=== PATIENT | female | born 1955 | race Caucasian/White ===

== ENCOUNTER 2016-11-10 12:13 | Emergency (ER) | payer MEDICAID, MEDICARE ==
[~2016-11-10] VITALS: Ht 165.1 cm; Wt 61.4 kg
[~2016-11-10 12:13] MED LIST: GABA-531 PO; METHI10 PO; MODA100 PO; NIFE60TA71 PO; PANT40TA25 PO; PROP40TA7 PO; RISP.5 PO; RISP1 PO; SUCR1TAB PO; TRAZ150 PO; VENL-68 PO
[2016-11-10] MEDS ORDERED: HYDR50 PO (12:23)
[2016-11-10] MEDS ORDERED: AMLO-512 PO (12:24)
[2016-11-10] MEDS ORDERED: BUPR-93 PO (12:29)
[2016-11-10] MEDS ORDERED: VENL-68 PO (12:29)
[2016-11-10] MEDS ORDERED: ESOM20CA31 PO (12:29)
[2016-11-10] MEDS ORDERED: HYDR25 PO (12:29)
[2016-11-10] MEDS ORDERED: EDOX60TA PO (12:29)
[2016-11-10] MEDS ORDERED: NIFE90TA45 PO (12:29)
[2016-11-10] MEDS ORDERED: CYPR4TAB35 PO (12:29)
[2016-11-10 13:30] LABS: ANION GAP 9 mmol/L (8-16); BASOPHILS % (AUTO) 0.3 % (0.0-2.0); CALCIUM, TOTAL 9.3 mg/dL (8.8-10.5); CARBON DIOXIDE 29 mmol/L (22-29); CHLORIDE 99 mmol/L (98-107); CREATININE 0.87 mg/dL (0.60-1.30); EOSINOPHILS % (AUTO) 1.1 % (1.0-6.0); GLOMERULAR FILTR. RATE CALC > 60 mL/min (>60); HEMATOCRIT 33.2 % (36-46); HEMOGLOBIN 10.8 g/dL (12.0-16.0); LYMPHOCYTES # (AUTO) 1.5 K/uL (1.0-4.8); LYMPHOCYTES % (AUTO) 21.6 % (22.0-44.0); MEAN CORPUSCULAR HEMOGLOBIN 24.7 pg (26.0-34.0); MEAN CORPUSCULAR HGB CONC 32.6 G/dL (31.0-37.0); MEAN CORPUSCULAR VOLUME 76 fL (80-100); MONOCYTES # (AUTO) 0.5 K/uL (0.1-1.0); MONOCYTES % (AUTO) 8.1 % (2.0-9.0); NEUTROPHILS # (AUTO) 4.6 K/uL (1.8-7.7); NEUTROPHILS % (AUTO) 68.9 % (40.0-70.0); PLATELET COUNT (AUTO) 376 K/uL (150-450); POTASSIUM 4.1 mmol/L (3.5-5.1); RED BLOOD CELL COUNT(AUTO) 4.39 MIL/uL (4.00-5.20); RED CELL DISTRIBUTION WIDTH 16.6 % (11.5-14.5); SODIUM SERUM 137 mmol/L (136-145); UREA NITROGEN, BLOOD 20 mg/dL (7-18); WHITE BLOOD COUNT (AUTO) 6.7 K/uL (4.5-11.0)
[2016-11-10 13:31] LABS: RBC MORPHOLOGY COMMENT ABNORMAL RBC MORPH
[2016-11-10 13:35] LABS: ALANINE AMINOTRANSFERASE 21 U/L (12-78); ALBUMIN 3.6 g/dL (3.4-5.0); ASPARTATE AMINOTRANSFERASE 18 U/L (15-37); BILIRUBIN,TOTAL 0.3 mg/dL (0.1-1.0); TOTAL PROTEIN, SERUM 7.8 g/dL (6.4-8.2)
[2016-11-10] MEDS ORDERED: LORazepam 2 MG TABLET PO ONE (15:30)
[2016-11-10] MEDS ORDERED: ACETAMINOPHEN 500 MG TABLET PO ONE (15:30)
[2016-11-10] MEDS ORDERED: TRAZ-147 PO (15:33)
[2016-11-10] MEDS ORDERED: GABA-529 PO (15:33)
[2016-11-10 15:43] VITALS: BP 110/65
== END 2016-11-10 16:26 | disposition home or self-care (01) ==
LOC: EMS 12:15 → EEVIPCON 12:15 → EMS 16:26
DX: F32.9 Major depressive disorder, single episode, unspecified (principal); I10 Essential (primary) hypertension; K21.9 Gastro-esophageal reflux disease without esophagitis; E03.9 Hypothyroidism, unspecified; Z86.73 Personal history of transient ischemic attack (TIA), and cerebral infarction without residual deficits
CPT/HCPCS: 36415; 80053; 85025; 99284; G0480